=== PATIENT | male | born 1990 | race Caucasian/White ===

== ENCOUNTER 2017-12-04 17:38 | Emergency (ER) | payer BC ==
[2017-12-04] MEDS ORDERED: Sodium Chloride 0.9% 2.5 ML Syringe FLUSH PRN (17:54)
[2017-12-04] MEDS ORDERED: Sodium Chloride 0.9% 10 ML Syringe FLUSH PRN (17:54)
[2017-12-04] MEDS ORDERED: Ondansetron 4 MG/2 ML SDV IVPUSH ONE (17:55)
[2017-12-04] MEDS ORDERED: Morphine 2 MG/ML Syringe IVPUSH ONE (17:55)
[2017-12-04] MEDS ORDERED: Sodium Chloride 0.9% 1,000 ML IV ONE (17:55)
--- NOTE | 2017-12-04 18:30 | EDM.PDOC ---
<Greyson Langston - Last Filed: 12/04/17 20:01> ED HPI GENERAL MEDICAL PROBLEM - General Chief Complaint: Abdominal Pain Stated Complaint: PAIN IN THE LOWER LT ABDIMONE Time Seen by Provider: 12/04/17 17:50 Source of Information: Reports: Patient History Limitations: Reports: No Limitations - History of Present Illness INITIAL COMMENTS - FREE TEXT/NARRATIVE: Dr. Langston taking over patient care at 1900. I have been thoroughly briefed on this patient and reviewed all radiologic and laboratory findings. I personally examined the patient and agree with the above. 1900: CBC, CMP, UA, H pylori unremarkable. CT abdomen and pelvis pending CT abdomen and pelvis showed focal thickening of the proximal sigmoid colon with adjacent pericolic fat stranding consistent with uncomplicated diverticulitis. Secondary to above I did call and talk to Dr. Israel, surgeon , who will see the patient in approximately a week and a half after his completed his antibiotics of Cipro Flagyl which were prescribed to him. In addition I did give him a small prescription for Walton 5 mg #12. He was instructed to return to the emergency department if he had a new or worsening symptoms. - Related Data Allergies Allergy/AdvReac Type Severity Reaction Status Date / Time anti-nausea Allergy Hives Uncoded 12/04/17 17:52 Home Meds: Home Meds Ranitidine [Zantac] 1 tab PO DAILY 12/04/17 [History] ED ROS GENERAL - Review of Systems Review Of Systems: ROS reveals no pertinent complaints other than HPI. ED EXAM, GI/ABD - Physical Exam Exam: See Below Course - Vital Signs Last Recorded V/S: Last Vital Signs Temp 98.9 F 12/04/17 20:14 Pulse 123 H 12/04/17 20:14 Resp 17 12/04/17 20:14 BP 123/82 12/04/17 20:14 Pulse Ox 95 12/04/17 20:14 - Orders/Labs/Meds Orders: Active Orders 24 hr Category Date Time Status Abdomen Pelvis w Cont [CT] Stat Exams 12/04/17 18:43 Taken Saline Lock Insert [OM.PC] Stat Oth 12/04/17 17:54 Ordered Labs: Laboratory Tests 12/04/17 12/04/17 12/04/17 Range/Units 18:13 18:13 18:13 WBC 10.84 (4.0-11.0) K/uL RBC 4.57 (4.50-5.90) M/uL Hgb 13.8 (13.0-17.0) g/dL Hct 38.4 (38.0-50.0) % MCV 84.0 (80.0-98.0) fL MCH 30.2 (27.0-32.0) pg MCHC 35.9 (31.0-37.0) g/dL RDW Std Deviation 38.5 (28.0-62.0) fl RDW Coeff of Zhane 13 (11.0-15.0) % Plt Count 163 (150-400) K/uL MPV 10.80 (7.40-12.00) fL Neut % (Auto) 76.7 (48.0-80.0) % Lymph % (Auto) 14.5 L (16.0-40.0) % Johnston % (Auto) 7.6 (0.0-15.0) % Eos % (Auto) 1.0 (0.0-7.0) % Baso % (Auto) 0.2 (0.0-1.5) % Neut # (Auto) 8.3 H (1.4-5.7) K/uL Lymph # (Auto) 1.6 (0.6-2.4) K/uL Johnston # (Auto) 0.8 (0.0-0.8) K/uL Eos # (Auto) 0.1 (0.0-0.7) K/uL Baso # (Auto) 0.0 (0.0-0.1) K/uL Nucleated RBC % 0.0 /100WBC Nucleated RBCs # 0 K/uL Sodium 138 (136-148) mmol/L Potassium 3.6 (3.5-5.1) mmol/L Chloride 101 (98-107) mmol/L Carbon Dioxide 27.0 (21.0-32.0) mmol/L BUN 18 (7.0-18.0) mg/dL Creatinine 1.0 (0.8-1.3) mg/dL Est Cr Clr Drug Dosing 129.01 mL/min Estimated GFR (MDRD) > 60.0 ml/min Glucose 92 (74-106) mg/dL Calcium 9.2 (8.5-10.1) mg/dL Total Bilirubin 1.3 H (0.2-1.0) mg/dL AST 18 (15-37) IU/L ALT 34 (14-63) IU/L Alkaline Phosphatase 35 L (46-116) U/L Total Protein 7.7 (6.4-8.2) g/dL Albumin 4.3 (3.4-5.0) g/dL Globulin 3.4 (2.0-3.5) g/dL Albumin/Globulin Ratio 1.3 (1.3-2.8) Lipase 100 (73-393) U/L Urine Color Urine Appearance Urine pH (5.0-8.0) Ur Specific [place] (1.001-1.035) Urine Protein (NEGATIVE) mg/dL Urine Glucose (UA) (NEGATIVE) mg/dL Urine Ketones (NEGATIVE) mg/dL Urine Occult Blood (NEGATIVE) Urine Nitrite (NEGATIVE) Urine Bilirubin (NEGATIVE) Urine Urobilinogen (<2.0) EU/dL Ur Leukocyte Esterase (NEGATIVE) Urine RBC (0-2/HPF) Urine WBC (0-5/HPF) Ur Epithelial Cells (NONE-FEW) Urine Bacteria (NEGATIVE) H. pylori IgG Antibody NEGATIVE (NEG) 12/04/17 Range/Units 18:22 WBC (4.0-11.0) K/uL RBC (4.50-5.90) M/uL Hgb (13.0-17.0) g/dL Hct (38.0-50.0) % MCV (80.0-98.0) fL MCH (27.0-32.0) pg MCHC (31.0-37.0) g/dL RDW Std Deviation (28.0-62.0) fl RDW Coeff of Zhane (11.0-15.0) % Plt Count (150-400) K/uL MPV (7.40-12.00) fL Neut % (Auto) (48.0-80.0) % Lymph % (Auto) (16.0-40.0) % Johnston % (Auto) (0.0-15.0) % Eos % (Auto) (0.0-7.0) % Baso % (Auto) (0.0-1.5) % Neut # (Auto) (1.4-5.7) K/uL Lymph # (Auto) (0.6-2.4) K/uL Johnston # (Auto) (0.0-0.8) K/uL Eos # (Auto) (0.0-0.7) K/uL Baso # (Auto) (0.0-0.1) K/uL Nucleated RBC % /100WBC Nucleated RBCs # K/uL Sodium (136-148) mmol/L Potassium (3.5-5.1) mmol/L Chloride (98-107) mmol/L Carbon Dioxide (21.0-32.0) mmol/L BUN (7.0-18.0) mg/dL Creatinine (0.8-1.3) mg/dL Est Cr Clr Drug Dosing mL/min Estimated GFR (MDRD) ml/min Glucose (74-106) mg/dL Calcium (8.5-10.1) mg/dL Total Bilirubin (0.2-1.0) mg/dL AST (15-37) IU/L ALT (14-63) IU/L Alkaline Phosphatase (46-116) U/L Total Protein (6.4-8.2) g/dL Albumin (3.4-5.0) g/dL Globulin (2.0-3.5) g/dL Albumin/Globulin Ratio (1.3-2.8) Lipase (73-393) U/L Urine Color YELLOW Urine Appearance CLEAR Urine pH 6.0 (5.0-8.0) Ur Specific [place] 1.015 (1.001-1.035) Urine Protein NEGATIVE (NEGATIVE) mg/dL Urine Glucose (UA) NEGATIVE (NEGATIVE) mg/dL Urine Ketones 15 H (NEGATIVE) mg/dL Urine Occult Blood TRACE-INTACT (NEGATIVE) Urine Nitrite NEGATIVE (NEGATIVE) Urine Bilirubin NEGATIVE (NEGATIVE) Urine Urobilinogen 0.2 (<2.0) EU/dL Ur Leukocyte Esterase NEGATIVE (NEGATIVE) Urine RBC 1-2 (0-2/HPF) Urine WBC 0-1 (0-5/HPF) Ur Epithelial Cells RARE (NONE-FEW) Urine Bacteria RARE (NEGATIVE) H. pylori IgG Antibody (NEG) Meds: Medications Discontinued Medications Generic Name Dose Route Start Last Admin Trade Name Freq PRN Reason Stop Dose Admin Sodium Chloride 1,000 mls @ 999 mls/hr 12/04/17 17:55 12/04/17 18:14 Normal Saline IV 12/04/17 18:55 999 mls/hr .Bolus ONE Administration Iopamidol 100 ml 12/04/17 19:06 12/04/17 19:07 Isovue-370 (76%) IVPUSH 12/04/17 19:07 100 ml ONETIME ONE Administration Morphine Sulfate 4 mg 12/04/17 17:55 12/04/17 18:15 Morphine IVPUSH 12/04/17 17:56 4 mg ONETIME ONE Administration Ondansetron HCl 4 mg 12/04/17 17:55 12/04/17 18:14 Zofran IVPUSH 12/04/17 17:56 4 mg ONETIME ONE Administration Sodium Chloride 10 ml 12/04/17 17:54 12/04/17 18:15 Saline Flush FLUSH 10 ml ASDIRECTED PRN Administration Keep Vein Open Sodium Chloride 2.5 ml 12/04/17 17:54 12/04/17 18:15 Saline Flush FLUSH 2.5 ml ASDIRECTED PRN Administration Keep Vein Open Departure - Departure Time of Disposition: 20:02 Disposition: Home, Self-Care 01 Condition: Good Clinical Impression: Abdominal pain, left lower quadrant Diverticulitis large intestine Qualifiers: Diverticulitis bleeding: with bleeding Diverticulitis complication: without perforation or abscess Qualified Code(s): K57.33 - Diverticulitis of large intestine without perforation or abscess with bleeding - Discharge Information Instructions: Abdominal Pain, Adult, [id number] Referrals: PCP,None [Primary Care Provider] - Forms: ED Department Discharge Additional Instructions: My general discharge The following information is given to patients seen in the emergency department who are being discharged to home. This information is to outline your options for follow-up care. We provide all patients seen in our emergency department with a follow-up referral. The need for follow-up, as well as the timing and circumstances, are variable depending upon the specifics of your emergency department visit. If you don't have a primary care physician on staff, we will provide you with a referral. We always advise you to contact your personal physician following an emergency department visit to inform them of the circumstance of the visit and for follow-up with them and/or the need for any referrals to a consulting specialist. The emergency department will also refer you to a specialist when appropriate. This referral assures that you have the opportunity for follow-up care with a specialist. All of these measure are taken in an effort to provide you with optimal care, which includes your follow-up. Under all circumstances we always encourage you to contact your private physician who remains a resource for coordinating your care. When calling for follow-up care, please make the office aware that this follow-up is from your recent emergency room visit. If for any reason you are refused follow-up, please contact the [facility] Emergency Department at and asked to speak to the emergency department charge nurse. My General Surgery [facility] Specialty Care - General Surgery Professional Building [address] [place] [address], [address] [place] [address] As we discussed please call number above to schedule an appointment with Dr. Israel, surgeon. Be sure to make the appointment in approximately a week and a half after you finished your antibiotics. Take medication as prescribed. Return emergency department if any new or worsening symptoms. - My Orders Last 24 Hours: My Active Orders 12/04/17 17:54 Saline Lock Insert [OM.PC] Stat 12/04/17 18:43 Abdomen Pelvis w Cont [CT] Stat - Assessment/Plan Last 24 Hours: My Active Orders 12/04/17 17:54 Saline Lock Insert [OM.PC] Stat 12/04/17 18:43 Abdomen Pelvis w Cont [CT] Stat <Yamileth Blakely - Last Filed: 12/05/17 08:43> ED HPI GENERAL MEDICAL PROBLEM - General Source of Information: Reports: Patient History Limitations: Reports: No Limitations - History of Present Illness INITIAL COMMENTS - FREE TEXT/NARRATIVE: History of present illness: []Patient started having left lower abdominal pain last night around 9 PM there has progressively worsened throughout the day. He's not had this pain in the past and states he also has bloody mucousy stool without diarrhea. He also states that when he tries to urinate he feels pressure with some difficulty. Denies any vomiting or fevers. Patient has been having epigastric pain and is currently being seen by Dr. Castellon in the resident clinic. Patient had an appendectomy in 2010 at [facility]. Review of systems: As per history of present illness and below otherwise all systems reviewed and negative. Past medical history: As per history of present illness and as reviewed below otherwise noncontributory. Surgical history: As per history of present illness and as reviewed below otherwise noncontributory. Social history: No reported history of drug or alcohol abuse. Family history: As per history of present illness and as reviewed below otherwise noncontributory. Physical exam: General: Well developed, well nourished in NAD HEENT: Atraumatic, normocephalic, pupils reactive, negative for conjunctival pallor or scleral icterus, mucous membranes moist, throat clear, neck supple, nontender, trachea midline. Lungs: Clear to auscultation, breath sounds equal bilaterally, chest nontender. Heart: S1S2, regular, negative for clicks, rubs, or JVD. Abdomen: Soft, nondistended, tender in left lower quadrant with rebound, no guarding. Negative for masses or hepatosplenomegaly. Negative for costovertebral tenderness. Pelvis: Stable nontender. Genitourinary: Deferred. Rectal: Deferred. Extremities: Atraumatic, negative for cords or calf pain. Neurovascular unremarkable. Neuro: Awake, alert, oriented. Cranial nerves II through XII unremarkable. Cerebellum unremarkable. Motor and sensory unremarkable throughout. Exam nonfocal. Skin:warm and dry Diagnostics: CBC, chemistry, lipase, UA, CT abdomen pelvis with contrast pending Therapeutics: IV fluids, morphine, Zofran with improvement ED Course: Unremarkable Impression: per Kian Prescriptions: Plan: Per Dr. Langston Definitive disposition and diagnosis as appropriate pending reevaluation and review of above. Left Lower Abdomen Pain Score (Numeric/FACES): 6 Past Medical History - Past Health History Medical/Surgical History: Denies Medical/Surgical History Other Cardiovascular History: Heart Palpitations Psychiatric History: Reports: Anxiety - Infectious Disease History Infectious Disease History: Reports: Chicken Pox - Past Surgical History GI Surgical History: Reports: Appendectomy Social & Family History - Family History Family Medical History: Noncontributory - Tobacco Use Smoking Status *Q: Never Smoker Second Hand Smoke Exposure: No - Caffeine Use Caffeine Use: Reports: None - Recreational Drug Use Recreational Drug Use: No ED ROS GENERAL - Review of Systems Review Of Systems: ROS reveals no pertinent complaints other than HPI. ED EXAM, GI/ABD - Physical Exam Exam: See Below (See history of present illness) Course - Orders/Labs/Meds Labs: Laboratory Tests 12/04/17 12/04/17 12/04/17 Range/Units 18:13 18:13 18:13 WBC 10.84 (4.0-11.0) K/uL RBC 4.57 (4.50-5.90) M/uL Hgb 13.8 (13.0-17.0) g/dL Hct 38.4 (38.0-50.0) % MCV 84.0 (80.0-98.0) fL MCH 30.2 (27.0-32.0) pg MCHC 35.9 (31.0-37.0) g/dL RDW Std Deviation 38.5 (28.0-62.0) fl RDW Coeff of Zhane 13 (11.0-15.0) % Plt Count 163 (150-400) K/uL MPV 10.80 (7.40-12.00) fL Neut % (Auto) 76.7 (48.0-80.0) % Lymph % (Auto) 14.5 L (16.0-40.0) % Johnston % (Auto) 7.6 (0.0-15.0) % Eos % (Auto) 1.0 (0.0-7.0) % Baso % (Auto) 0.2 (0.0-1.5) % Neut # (Auto) 8.3 H (1.4-5.7) K/uL Lymph # (Auto) 1.6 (0.6-2.4) K/uL Johnston # (Auto) 0.8 (0.0-0.8) K/uL Eos # (Auto) 0.1 (0.0-0.7) K/uL Baso # (Auto) 0.0 (0.0-0.1) K/uL Nucleated RBC % 0.0 /100WBC Nucleated RBCs # 0 K/uL Sodium 138 (136-148) mmol/L Potassium 3.6 (3.5-5.1) mmol/L Chloride 101 (98-107) mmol/L Carbon Dioxide 27.0 (21.0-32.0) mmol/L BUN 18 (7.0-18.0) mg/dL Creatinine 1.0 (0.8-1.3) mg/dL Est Cr Clr Drug Dosing 129.01 mL/min Estimated GFR (MDRD) > 60.0 ml/min Glucose 92 (74-106) mg/dL Calcium 9.2 (8.5-10.1) mg/dL Total Bilirubin 1.3 H (0.2-1.0) mg/dL AST 18 (15-37) IU/L ALT 34 (14-63) IU/L Alkaline Phosphatase 35 L (46-116) U/L Total Protein 7.7 (6.4-8.2) g/dL Albumin 4.3 (3.4-5.0) g/dL Globulin 3.4 (2.0-3.5) g/dL Albumin/Globulin Ratio 1.3 (1.3-2.8) Lipase 100 (73-393) U/L Urine Color Urine Appearance Urine pH (5.0-8.0) Ur Specific [place] (1.001-1.035) Urine Protein (NEGATIVE) mg/dL Urine Glucose (UA) (NEGATIVE) mg/dL Urine Ketones (NEGATIVE) mg/dL Urine Occult Blood (NEGATIVE) Urine Nitrite (NEGATIVE) Urine Bilirubin (NEGATIVE) Urine Urobilinogen (<2.0) EU/dL Ur Leukocyte Esterase (NEGATIVE) Urine RBC (0-2/HPF) Urine WBC (0-5/HPF) Ur Epithelial Cells (NONE-FEW) Urine Bacteria (NEGATIVE) H. pylori IgG Antibody NEGATIVE (NEG) 12/04/17 Range/Units 18:22 WBC (4.0-11.0) K/uL RBC (4.50-5.90) M/uL Hgb (13.0-17.0) g/dL Hct (38.0-50.0) % MCV (80.0-98.0) fL MCH (27.0-32.0) pg MCHC (31.0-37.0) g/dL RDW Std Deviation (28.0-62.0) fl RDW Coeff of Zhane (11.0-15.0) % Plt Count (150-400) K/uL MPV (7.40-12.00) fL Neut % (Auto) (48.0-80.0) % Lymph % (Auto) (16.0-40.0) % Johnston % (Auto) (0.0-15.0) % Eos % (Auto) (0.0-7.0) % Baso % (Auto) (0.0-1.5) % Neut # (Auto) (1.4-5.7) K/uL Lymph # (Auto) (0.6-2.4) K/uL Johnston # (Auto) (0.0-0.8) K/uL Eos # (Auto) (0.0-0.7) K/uL Baso # (Auto) (0.0-0.1) K/uL Nucleated RBC % /100WBC Nucleated RBCs # K/uL Sodium (136-148) mmol/L Potassium (3.5-5.1) mmol/L Chloride (98-107) mmol/L Carbon Dioxide (21.0-32.0) mmol/L BUN (7.0-18.0) mg/dL Creatinine (0.8-1.3) mg/dL Est Cr Clr Drug Dosing mL/min Estimated GFR (MDRD) ml/min Glucose (74-106) mg/dL Calcium (8.5-10.1) mg/dL Total Bilirubin (0.2-1.0) mg/dL AST (15-37) IU/L ALT (14-63) IU/L Alkaline Phosphatase (46-116) U/L Total Protein (6.4-8.2) g/dL Albumin (3.4-5.0) g/dL Globulin (2.0-3.5) g/dL Albumin/Globulin Ratio (1.3-2.8) Lipase (73-393) U/L Urine Color YELLOW Urine Appearance CLEAR Urine pH 6.0 (5.0-8.0) Ur Specific [place] 1.015 (1.001-1.035) Urine Protein NEGATIVE (NEGATIVE) mg/dL Urine Glucose (UA) NEGATIVE (NEGATIVE) mg/dL Urine Ketones 15 H (NEGATIVE) mg/dL Urine Occult Blood TRACE-INTACT (NEGATIVE) Urine Nitrite NEGATIVE (NEGATIVE) Urine Bilirubin NEGATIVE (NEGATIVE) Urine Urobilinogen 0.2 (<2.0) EU/dL Ur Leukocyte Esterase NEGATIVE (NEGATIVE) Urine RBC 1-2 (0-2/HPF) Urine WBC 0-1 (0-5/HPF) Ur Epithelial Cells RARE (NONE-FEW) Urine Bacteria RARE (NEGATIVE) H. pylori IgG Antibody (NEG) Departure - Discharge Information *PRESCRIPTION DRUG MONITORING PROGRAM REVIEWED*: No *COPY OF PRESCRIPTION DRUG MONITORING REPORT IN PATIENT ANDREI: No
[2017-12-04 18:49] LABS: CHLORIDE,CL 101 mmol/L (98-107); SODIUM,NA 138 mmol/L (136-148)
[2017-12-04] MEDS ORDERED: Iopamidol 755 Mg/ML 100 ML Bottle IVPUSH ONE (19:06)
[2017-12-04 20:23] VITALS: BP 123/82
--- NOTE | 2017-12-05 13:01 | CT ---
EXAM DATE: 12/04/17 PATIENT'S AGE: 27 Patient: JAYASHREE VACA Facility: [place], [place] Site . Site : 1990 Study: CT Abdomen -12/04/2017 7:16:36 PM Ordering Physician: Reddy Carson Final Report: INDICATION: lq pain with bloody stool INDICATION: Left lower quadrant pain with bloody stool TECHNIQUE: CT abdomen and pelvis acquired with IV contrast. 100 cc Isovue 370 COMPARISON: None FINDINGS: Lower chest: Unremarkable. Liver: Unremarkable. Spleen: Splenomegaly measuring up to 17.0 centimeters. Pancreas: Unremarkable. Gallbladder and bile ducts: Unremarkable. Kidneys: Unremarkable. Adrenal glands: Unremarkable. GI tract: Focal thickening of the proximal sigmoid colon with adjacent pericolonic fat stranding consistent with uncomplicated diverticulitis. Appendix is not definitively demonstrated. Vascular structures: Unremarkable. Lymph nodes: Unremarkable. Miscellaneous: Unremarkable. No free air or significant free fluid. Pelvic Organs: Unremarkable. Bones: Unremarkable for age. IMPRESSION: Focal thickening of the proximal sigmoid colon with adjacent pericolonic fat stranding consistent with uncomplicated diverticulitis. Splenomegaly. Dictated by Javier Robles MD @ 12/04/2017 7:28:16 PM Please note that all CT scans at this facility use dose modulation, iterative reconstruction, and/or weight-based dosing when appropriate to reduce radiation dose to as low as reasonably achievable. Dictated by: Javier Robles MD @ 12/04/2017 19:28:35 (Electronic Signature) Report Signed by Proxy. [facility]
== END 2017-12-04 20:15 | disposition home or self-care (01) ==
LOC: MW.ED 17:38
DX: K57.33 Diverticulitis of large intestine without perforation or abscess with bleeding (principal); Z88.8 Allergy status to other drugs, medicaments and biological substances; Z79.899 Other long term (current) drug therapy
CPT/HCPCS: 74177; 80053; 81001; 83690; 85025; 86677; 96361; 96374; 96375; 99284; J2270; J2405; J7040; Q9967; 99283

== ENCOUNTER 2018-10-05 06:37 | Day surgery (SDC) | payer BC ==
[~2018-10-05 06:37] MED LIST: Lactated Ringers 1,000 ML IV SCH; cefOXitin 2 GM in Premix Bag 1 BAG IV ONE
[2018-10-05] MEDS ORDERED: Propofol 200 MG/20 ML SDV ONE (07:11)
[2018-10-05] MEDS ORDERED: Ondansetron 4 MG/2 ML SDV ONE (07:11)
[2018-10-05] MEDS ORDERED: Ketorolac 30 MG/ML SDV ONE (07:12)
[2018-10-05] MEDS ORDERED: Midazolam 1 MG/ML 2 ML SDV ONE (07:12)
[2018-10-05] MEDS ORDERED: Rocuronium 100 MG/10 ML Syringe ONE (07:12)
[2018-10-05] MEDS ORDERED: Glycopyrrolate 0.2 MG/ML SDV ONE (07:12)
[2018-10-05] MEDS ORDERED: fentaNYL 250 MCG/5 ML SDV ONE (07:13)
[2018-10-05] MEDS ORDERED: Scopolamine 1.5 MG Transdermal Patch TRDERM PRN (07:14)
[2018-10-05] MEDS ORDERED: HYDROmorphone 2 MG/ML Syringe ONE (07:14)
[2018-10-05] MEDS ORDERED: Sugammadex Sodium 200 MG/2 ML VIAL ONE (07:17)
--- NOTE | 2018-10-05 07:19 | PCM.PREANE ---
Preanesthetic Assessment - Anesthesia/Transfusion/Family Hx Anesthesia History: Prior Anesthesia Without Reaction Other Type of Anesthesia Reaction Comment: "dad has problems with anxiety before and after surgery" Family History of Anesthesia Reaction: No Transfusion History: No Prior Transfusion(s) Intubation History: Unknown - Review of Systems General: No Symptoms Pulmonary: No Symptoms Cardiovascular: No Symptoms Gastrointestinal: Abdominal Pain, Nausea Neurological: No Symptoms Other: Reports: None - Physical Assessment Height: 6 ft 2 in Weight: 118.388 kg ASA Class: 2 Mental Status: Alert & Oriented x3 Airway Class: Mallampati = 2 Dentition: Reports: Normal Dentition Thyro-Mental Finger Breadths: 3 Mouth Opening Finger Breadths: 3 ROM/Head Extension: Full Lungs: Clear to Auscultation, Normal Respiratory Effort Cardiovascular: Regular Rate, Regular Rhythm - Allergies Allergies/Adverse Reactions: Allergies Allergy/AdvReac Type Severity Reaction Status Date / Time No Known Allergies Allergy Verified 09/30/18 11:41 - Blood Blood Available: No - Anesthesia Plan Pre-Op Medication Ordered: None - Acknowledgements Anesthesia Type Planned: General Anesthesia Pt an Appropriate Candidate for the Planned Anesthesia: Yes Alternatives and Risks of Anesthesia Discussed w Pt/Guardian: Yes Pt/Guardian Understands and Agrees with Anesthesia Plan: Yes PreAnesthesia Questionnaire - Past Health History Medical/Surgical History: Denies Medical/Surgical History HEENT History: Reports: None Cardiovascular History: Reports: Other (See Below) Other Cardiovascular History: Heart Palpitations, had holter monitor for two weeks - nothing wrong noticed Respiratory History: Reports: None Gastrointestinal History: Reports: Diverticulosis, GERD, Hiatal Hernia, Other ( See Below) Other Gastrointestinal History: hx diverticulitis Genitourinary History: Reports: None Musculoskeletal History: Reports: None Neurological History: Reports: Migraines Psychiatric History: Reports: Anxiety, Depression Endocrine/Metabolic History: Reports: Obesity/BMI 30+ Hematologic History: Reports: None Immunologic History: Reports: None Oncologic (Cancer) History: Reports: None Dermatologic History: Reports: Other (See Below) Other Dermatologic History: chest rash - Infectious Disease History Infectious Disease History: Reports: Chicken Pox - Past Surgical History Head Surgeries/Procedures: Reports: None HEENT Surgical History: Reports: None Cardiovascular Surgical History: Reports: None Respiratory Surgical History: Reports: None GI Surgical History: Reports: Appendectomy, EGD Male Surgical History: Reports: None Endocrine Surgical History: Reports: None Neurological Surgical History: Reports: None Musculoskeletal Surgical History: Reports: None Oncologic Surgical History: Reports: None Dermatological Surgical History: Reports: None - SUBSTANCE USE Smoking Status *Q: Former Smoker Tobacco Use Within Last Twelve Months: No - HOME MEDS Home Medications: Home Meds Hyoscyamine Sulfate 1 tab SL ASDIRECTED PRN 09/30/18 [History] Pantoprazole Sodium 1 tab PO DAILY 09/30/18 [History] - CURRENT (IN HOUSE) MEDS Current Meds: Current Medications Lactated Ringer's (Ringers, Lactated) 1,000 mls @ 125 mls/hr IV ASDIRECTED BRANDON Discontinued Medications Cefoxitin Sodium 2 gm/ Premix 50 mls @ 100 mls/hr IV ONETIME ONE Stop: 10/05/18 06:29
[2018-10-05] MEDS ORDERED: ceFAZolin 1 GM Vial ONE (07:31)
[2018-10-05] MEDS ORDERED: Bupivacaine 0.5% 10 ML SDV ONE (07:31)
[2018-10-05] MEDS ORDERED: fentaNYL 100 MCG/2 ML SDV IVPUSH PRN (08:59)
[2018-10-05] MEDS ORDERED: Acetaminophen/HYDROcodone 325-5 MG Tab PO PRN (09:49)
--- NOTE | 2018-10-05 09:51 | PCM.OPNOTE ---
- General Post-Op/Procedure Note Date of Surgery/Procedure: 10/05/18 Operative Procedure(s): Laparoscopic cholecystectomy Pre Op Diagnosis: Chronic right upper quadrant pain. Abnormal hepatobiliary scan. Post-Op Diagnosis: Chronic cholecystitis Anesthesia Technique: General ET Tube (ASA II) Primary Surgeon: Andrea Israel Fluid Replacement, Intraop: 1,500 Output, Urine Amount: 100 EBL in mLs: 10 Condition: Good Free Text/Narrative:: DICTATION [id number] CPT CODE 40182
[2018-10-05] MEDS ORDERED: Lactated Ringers 1,000 ML IV SCH (10:00)
[2018-10-05] MEDS ORDERED: oxyCODONE 5 MG Tab PO ONE (10:59)
--- NOTE | 2018-10-05 11:08 | OR ---
SURGEON: Andrea Israel M.D. DATE OF PROCEDURE: 10/05/2018 OPERATION PERFORMED: Laparoscopic cholecystectomy. PRIMARY SURGEON: Andrea Israel M.D. ANESTHESIA: General endotracheal. ASA CLASSIFICATION: II. PREOPERATIVE DIAGNOSES: 1. Chronic right upper quadrant pain. 2. Abnormal hepatobiliary scan. POSTOPERATIVE DIAGNOSES: 1. Chronic right upper quadrant pain. 2. Abnormal hepatobiliary scan. 3. Chronic cholecystitis. DESCRIPTION OF PROCEDURE: The patient was taken to the operating room and placed on the operating table in the supine position. Time-out was called for appropriate identification of the patient and procedure. Thigh-high TEDs and sequential compression boots were placed. Following satisfactory attainment of general endotracheal anesthesia, a Hahn catheter was placed in the patient's urinary bladder. The abdomen was prepped with DuraPrep solution. Sterile drapes were applied. Skin just below the umbilicus was infiltrated with 0.5% Marcaine solution. Skin incision was made and deepened through the subcutaneous tissue obtaining hemostasis with the use of electrocautery. The Veress needle was introduced into the peritoneal cavity. Saline drop test was positive. Carbon dioxide pneumoperitoneum was established with the release set at 13 cm of water. Once a satisfactory pneumoperitoneum was established, 5 mm camera and port were placed through the infraumbilical incision. The patient was now positioned with his feet down and rolled to the left. Under camera vision, 12 mm subxiphoid, 5 mm midclavicular, and 5 mm anterior axillary ports were placed. Each incision had preemptively been infiltrated with 0.5% Marcaine solution. The gallbladder was grasped and there were multiple adhesions present. These were taken down with a combination of sharp and blunt dissection and electrocautery. Once all adhesions were taken down, our dissection was carried down to the cholecystohepatic triangle. The node of [place] was identified and used as a landmark. The cholecystohepatic triangle was then dissected free being careful to obtain a good critical view of both the cystic artery and the cystic duct, and being able to see the cystic plate underneath before hemoclipping these structures individually and transecting them with the laparoscopic Metzenbaum scissor. The gallbladder was then dissected away from its bed using electrocautery. No bile was spilled and there was no significant bleeding noted from the liver bed. No bile was noted from the liver bed. Once the gallbladder was amputated, this was placed in an EndoCatch and maintained in situ. The right upper quadrant was then inspected and irrigated with sterile saline solution. All fluid was aspirated. Surgicel was placed into the bed of the gallbladder. The right hemidiaphragm was now irrigated with 250 mL of saline containing 20 mL of 0.5% Marcaine solution. That fluid was left in place. Under camera vision, the 12 mm subxiphoid port and EndoCatch containing gallbladder were removed. It was necessary to extend the fascial incision slightly to retrieve the gallbladder and EndoCatch. This was done without too much difficulty. Again, under camera vision, the 5 mm midclavicular and anterior axillary ports were removed. Each incision was then inspected for hemostasis and small bleeding sites were electrocoagulated. The infraumbilical and subxiphoid incisions were closed in 2 layers approximating the subcutaneous tissue with 3-0 Vicryl and the skin with subcuticular 4-0 Monocryl. The anterior axillary and midclavicular incisions were closed with subcuticular 4-0 Monocryl. All incisions were Steri-Stripped and dressed with sterile Tegaderm pads. Sponge, needle, and instrument counts were all correct. Hahn catheter was removed prior to emergence from anesthesia. Following emergence from anesthesia and extubation, the patient was taken to recovery room in stable condition. LOIS HEREDIA /[id number]
[2018-10-05] MEDS: Morphine 4 MG/ML Syringe IVPUSH PRN ×2 (11:14→12:24)
[2018-10-05 13:46] VITALS: BP 124/69; PULSE 86
== END 2018-10-05 14:00 | disposition home or self-care (01) ==
LOC: MW.SDS 06:37
PROVIDERS: ATTEND Surgery
DX: K81.1 Chronic cholecystitis (principal); G89.29 Other chronic pain; R10.11 Right upper quadrant pain; R93.2 Abnormal findings on diagnostic imaging of liver and biliary tract; F41.9 Anxiety disorder, unspecified; K52.9 Noninfective gastroenteritis and colitis, unspecified; K29.50 Unspecified chronic gastritis without bleeding; K21.9 Gastro-esophageal reflux disease without esophagitis; F32.9 Major depressive disorder, single episode, unspecified; E66.9 Obesity, unspecified; Z68.33 Body mass index [BMI] 33.0-33.9, adult; Z79.899 Other long term (current) drug therapy; Z88.8 Allergy status to other drugs, medicaments and biological substances; Z87.891 Personal history of nicotine dependence
CPT/HCPCS: 47562; A9270; J0131; J1170; J1885; J2001; J2250; J2270; J2405; J2704; J3010; J3490; J7120; 00790; 88304; J0690

== ENCOUNTER 2020-12-30 19:55 | Emergency (ER) | payer BC ==
--- NOTE | 2020-12-30 20:09 | PCM.EKG ---
#1 Interpretation EKG Date: 12/30/20 Time: 20:01 Rhythm: NSR Rate (Beats/Min): 94 [place]: Normal P-Wave: Present QRS: Normal ST-T: Normal QT: Normal Comparison: No Change (12/02/17) EKG Interpretation Comments: Sinus Rhythm with occasional PAC
--- NOTE | 2020-12-30 20:53 | CR ---
INDICATION: Chest pain. TECHNIQUE: Two AP views of the chest. COMPARISON: None. FINDINGS: Normal cardiac, mediastinal and hilar contours. Normal pulmonary vasculature. Lungs are grossly clear. No appreciable pleural fluid. No pneumothorax. IMPRESSION: No radiographic signs of acute cardiopulmonary disease. Dictated by Panda Francisco MD @ 12/30/2020 8:51:01 PM Dictated by: Panda Francisco MD @ 12/30/2020 20:51:08 (Electronically Signed)
--- NOTE | 2020-12-30 21:23 | EDM.PDOC ---
ED HPI GENERAL MEDICAL PROBLEM - General Chief Complaint: Cardiovascular Problem Stated Complaint: HEART FLUTTERING Time Seen by Provider: 12/30/20 20:14 - History of Present Illness INITIAL COMMENTS - FREE TEXT/NARRATIVE: CHIEF COMPLAINT(S): "It felt like my heart was beating slow." HISTORY OF PRESENT ILLNESS: This is a 30-year-old man with a past medical history of anxiety who comes to the emergency department with a chief complaint of "it felt like my heart was beating slow." The patient states that his felt like his heart was beating slow. He states that this happened when he stood up and he felt like he got dizzy and experiencing pressure in his chest throughout his entire front of his chest. He denied any associated diaphoresis, nausea or vomiting. He denies any syncope. He states that this is never happened before. He states that over the last few weeks he has been experiencing decreased appetite and has been having intermittent vomiting. He states that he followed up with his primary care physician who recommended pantoprazole which does not seem to be helping. He states that he has not had a referral for GI. He denies any headache, blurry vision, loss of vision, fever, chills, neck pain, abdominal pain. He denies any diarrhea or melena. He states that he does have some anxiety and he felt like his heart was thumping. He states that he does have a father who is 70 years old who has atrial fibrillation and a grandfather who has CHF however there was no early onset CAD, CHF and denies any sudden onset at young age. He denies any other symptoms REVIEW OF SYSTEMS: Constitutional: Denies fever, chills. Eyes: Denies eye pain Ears, Nose, Mouth, & Throat: Denies earache Cardiovascular: Positive for sensation that the patient's heartbeat was low and presyncopal symptoms. Denies chest pain Respiratory: Denies shortness of breath Gastrointestinal: Denies Nausea, vomiting, diarrhea, hematochezia. Genitourinary: Denies hematuria Skin:Denies a rash MSK: Denies joint pain Neurological: Denies blurred vision Psychiatric: Positive for anxiety PAST MEDICAL HISTORY: As per history of present illness and as reviewed below otherwise noncontributory. SURGICAL HISTORY: As per history of present illness and as reviewed below otherwise noncontributory. SOCIAL HISTORY: As per history of present illness and as reviewed below otherwise noncontributory. FAMILY HISTORY: As per history of present illness and as reviewed below otherwise noncontributory. EXAMINATION OF ORGAN SYSTEMS/BODY AREAS: Constitutional: Blood pressure is 171/110, heart rate 116, respiratory rate 19 with an oxygen saturation of 99% on room air. Temperature 36.8 General: Anxious appearing man who is otherwise in no acute distress Psychiatric: Anxious appearing but is cooperative Eyes: No scleral icterus or conjunctival erythema ENMT: Moist mucous membranes. No pharyngeal erythema Cardiovascular: Regular, rate, and rhythm. No gallops, murmurs, or rubs. Bilateral upper extremity pulses symmetric and intact. No peripheral edema. No JVD. Respiratory: Lungs clear to auscultation bilaterally. No wheezes, rales, or rhonchi. Gastrointestinal: Soft, non-tender, non-distended. Normoactive bowel sounds Genitourinary: No suprapubic tenderness Musculoskeletal: Normal range of motion. Skin: No lesions or abrasions. Neurological: Alert, GCS 15 MEDICAL DECISION MAKING AND COURSE IN THE ED WITH INTERPRETATION/REVIEW OF DIAGNOSTIC STUDIES: This is a 30-year-old man and with a past medical history of anxiety who comes to the emergency department with sensation like his heart was beating slow with a episode of dizziness when he stood up who is hypertensive and tachycardic and appears anxious. At this time I did review the patient's chart the patient has had a Holter monitor in the past all of which was normal. I do believe his symptoms are likely secondary to his anxiety and the patient is asking for anxiety medications. At this time I did obtain a screening EKG which was unremarkable. We did also obtain a chest x-ray. Given his decreased p.o. intake over the last few weeks I do believe that there is probably a component of decreased fluid leading to mild dehydration. I encouraged the patient to continue with p.o. hydration. He was amenable to this plan. At this time I do believe the patient is stable for discharge. He was given strict return precautions. The patient had no further questions. The radiological images were viewed by myself along with reading the report from the radiologist. Chest x-ray does not reveal any acute cardiopulmonary process. DISPOSITION: The patient was discharged home in stable condition. The patient will follow up with primary care physician in 3 to 5 days CONDITION: Fair PROCEDURES: None FINAL IMPRESSION(S)/DIAGNOSES: 1. Acute anxiety Pablo Andre M.D. - Related Data Allergies Allergy/AdvReac Type Severity Reaction Status Date / Time No Known Allergies Allergy Verified 09/30/18 11:41 Home Meds: Home Meds Hyoscyamine Sulfate 1 tab SL ASDIRECTED PRN 09/30/18 [History] Pantoprazole Sodium 1 tab PO DAILY 09/30/18 [History] Acetaminophen/HYDROcodone [Estelline 325-5 MG] 1 tab PO Q6H PRN #20 tablet 10/05/18 [Rx] Past Medical History - Past Health History Medical/Surgical History: Denies Medical/Surgical History HEENT History: Reports: None Cardiovascular History: Reports: Other (See Below) Other Cardiovascular History: Heart Palpitations, had holter monitor for two weeks - nothing wrong noticed Respiratory History: Reports: None Gastrointestinal History: Reports: Diverticulosis, GERD, Hiatal Hernia, Other (See Below) Other Gastrointestinal History: hx diverticulitis Genitourinary History: Reports: None Musculoskeletal History: Reports: None Neurological History: Reports: Migraines Psychiatric History: Reports: Anxiety, Depression Endocrine/Metabolic History: Reports: Obesity/BMI 30+ Hematologic History: Reports: None Immunologic History: Reports: None Oncologic (Cancer) History: Reports: None Dermatologic History: Reports: Other (See Below) Other Dermatologic History: chest rash - Infectious Disease History Infectious Disease History: Reports: Chicken Pox - Past Surgical History Head Surgeries/Procedures: Reports: None HEENT Surgical History: Reports: None Cardiovascular Surgical History: Reports: None Respiratory Surgical History: Reports: None GI Surgical History: Reports: Appendectomy, EGD Male Surgical History: Reports: None Endocrine Surgical History: Reports: None Neurological Surgical History: Reports: None Musculoskeletal Surgical History: Reports: None Oncologic Surgical History: Reports: None Dermatological Surgical History: Reports: None Social & Family History - Family History Family Medical History: No Pertinent Family History - Tobacco Use Tobacco Use Status *Q: Never Tobacco User - Caffeine Use Caffeine Use: Reports: None - Recreational Drug Use Recreational Drug Use: No ED ROS GENERAL - Review of Systems Review Of Systems: See Below ED EXAM, GENERAL - Physical Exam Exam: See Below Course - Vital Signs Last Recorded V/S: Last Vital Signs Temp 36.8 C 12/30/20 20:13 Pulse 75 12/30/20 21:35 Resp 14 12/30/20 21:35 BP 146/94 H 12/30/20 21:35 Pulse Ox 96 12/30/20 21:35 Departure - Departure Time of Disposition: 21:22 Disposition: Home, Self-Care 01 Condition: Fair Clinical Impression: Anxiety, Orthostatic hypotension, Dehydration - Discharge Information *PRESCRIPTION DRUG MONITORING PROGRAM REVIEWED*: No *COPY OF PRESCRIPTION DRUG MONITORING REPORT IN PATIENT ANDREI: No Instructions: Orthostatic Hypotension, Dehydration, Adult, [id number], Managing Anxiety, Adult Referrals: Florence Harrison MD [Primary Care Provider] - Forms: ED Department Discharge Additional Instructions: You were evaluated today on an emergent basis. The believe at this time there are 2 different things going on. I recommend that you follow-up with your primary care physician for a referral to get an endoscopy given your decreased p.o. intake over the last couple of weeks. I do believe this is contributing to your symptoms given that you have had decreased p.o. intake and you could lead to hydration issues. I recommend you at least maintain hydration with Pedialyte, Gatorade and water. Given that you get the symptoms when going from a sitting to a standing position I recommend that you get up slowly and stay in position for approximately 15 to 30 seconds before continuing to move. This should improve with your hydration. In discussion with you you also have some anxiety and I do believe this is also contributing. I did discuss the at this time that I do not want to start any medications as I do not believe the addictive potential of these medications outweighs the benefits of these medications. I did recommend breathing exercises with you. If you have any worsening symptoms such as chest pain, passing out, swelling of your lower extremities I would like you to return to the emergency department. Otherwise contact your primary care physician on Friday for a follow-up evaluation. [facility] [address] [place] [address] [id number] [address] [id number] The patient is informed of any results of their evaluation and diagnostic workup and all questions are answered. They are given discharge instructions and return precautions. The patient is stable for discharge. The patient states they understand and agree with the plan and that they will return if their symptoms get worse or if they have any new concerns. The following information is given to patients seen in the emergency department who are being discharged to home. This information is to outline your options for follow-up care. We provide all patients seen in our emergency department with a follow-up referral. The need for follow-up, as well as the timing and circumstances, are variable depending upon the specifics of your emergency department visit. If you don't have a primary care physician on staff, we will provide you with a referral. We always advise you to contact your personal physician following an emergency department visit to inform them of the circumstance of the visit and for follow-up with them and/or the need for any referrals to a consulting specialist. The emergency department will also refer you to a specialist when appropriate. This referral assures that you have the opportunity for follow-up care with a specialist. All of these measure are taken in an effort to provide you with optimal care, which includes your follow-up. Under all circumstances we always encourage you to contact your private physician who remains a resource for coordinating your care. When calling for follow-up care, please make the office aware that this follow-up is from your recent emergency room visit. If for any reason you are refused follow-up, please contact the [facility] Emergency Department at and asked to speak to the emergency department charge nurse. Sepsis Event Note (ED) - Evaluation Sepsis Screening Result: No Definite Risk
[2020-12-30 21:36] VITALS: BP 146/94; PULSE 75
== END 2020-12-30 21:45 | disposition home or self-care (01) ==
LOC: MW.ED 19:55
DX: F41.9 Anxiety disorder, unspecified (principal); I95.1 Orthostatic hypotension; E86.0 Dehydration; K21.9 Gastro-esophageal reflux disease without esophagitis; E66.9 Obesity, unspecified; Z79.899 Other long term (current) drug therapy; Z68.34 Body mass index [BMI] 34.0-34.9, adult
CPT/HCPCS: 71045; 71045-26; 93005; 99285-25

== ENCOUNTER 2021-07-21 13:08 | Emergency (ER) | payer BC ==
[2021-07-21] MEDS ORDERED: Lactated Ringers 1,000 ML IV ONE (13:44)
[2021-07-21] MEDS ORDERED: Morphine 4 MG/ML VIAL IVPUSH ONE (13:45)
[2021-07-21] MEDS ORDERED: Ondansetron 4 MG/2 ML SDV IVPUSH ONE ×2 (14:10→15:29)
[2021-07-21 14:48] LABS: BLOOD UREA NITROGEN,BUN 11 mg/dL (7.0-18.0); CHLORIDE,CL 99 mmol/L (98-107); GLUCOSE RANDOM 99 mg/dL (74-106); POTASSIUM,K 3.9 mmol/L (3.5-5.1); SODIUM,NA 138 mmol/L (136-148)
[2021-07-21] MEDS ORDERED: Amoxicillin/Clavulanate K 875-125 MG Tab PO STA (16:02)
[2021-07-21 16:40] VITALS: BP 114/82; PULSE 95
[2021-07-21] MEDS ORDERED: Iopamidol 755 MG/ML 500 ML Multipack Bottle IVPUSH ONE (18:53)
== END 2021-07-21 16:40 | disposition home or self-care (01) ==
LOC: MW.ED 13:08
DX: K57.32 Diverticulitis of large intestine without perforation or abscess without bleeding (principal); K21.9 Gastro-esophageal reflux disease without esophagitis; E66.9 Obesity, unspecified; Z68.31 Body mass index [BMI] 31.0-31.9, adult
CPT/HCPCS: 36415; 74177; 80053; 81003; 83690; 85025; 96374; 96375; 96376; 99284; A9270; J2270; J2405; J7120; Q9967

== ENCOUNTER 2022-12-25 14:15 | Emergency (ER) | payer BC ==
[2022-12-25] MEDS ORDERED: Ondansetron 4 MG Tab.DIS PO STA (14:49)
[2022-12-25 16:16] LABS: CORONAVIRUS COVID-19 NAA NEGATIVE (NEGATIVE); INFLUENZA A NAA NEGATIVE (NEGATIVE); INFLUENZA B NAA NEGATIVE (NEGATIVE)
[2022-12-25 16:57] VITALS: BP 131/75; PULSE 80
== END 2022-12-25 16:55 | disposition home or self-care (01) ==
LOC: MW.ED 14:15
DX: R05.8 Other specified cough (principal); R10.9 Unspecified abdominal pain; E66.9 Obesity, unspecified; Z68.34 Body mass index [BMI] 34.0-34.9, adult; Z20.822 Contact with and (suspected) exposure to COVID-19; Z86.16 Personal history of COVID-19
CPT/HCPCS: 0240U; 71046; 99284; A9270; 99283

== ENCOUNTER 2024-02-28 13:27 | Emergency (ER) | payer BC ==
[2024-02-28] MEDS: Lidocaine 1% 5 ML VIAL INJECT ONE (14:51)
[2024-02-28] MEDS: Diphtheria,Pertussis(Acell),Tetanus Vaccine 0.5 ML Syringe IM ONE (14:51)
[2024-02-28 15:02] VITALS: BP 126/76; PULSE 70
== END 2024-02-28 15:01 | disposition home or self-care (01) ==
LOC: MW.ED 13:27
DX: S61.411A Laceration without foreign body of right hand, initial encounter (principal); Z23 Encounter for immunization; Z88.8 Allergy status to other drugs, medicaments and biological substances; Z79.899 Other long term (current) drug therapy; Z90.49 Acquired absence of other specified parts of digestive tract; W26.8XXA Contact with other sharp object(s), not elsewhere classified, initial encounter
CPT/HCPCS: 12001; 90471; 90715; 99282-25; J3490